=== PATIENT | female | born 2000 | race Caucasian/White ===

== ENCOUNTER 2023-08-25 06:11 | Day surgery (SDC) | payer OTHER ==
[~2023-08-25 06:11] MED LIST: HUMALOG100 UNIT/2 SQ; LIPITOR20 MG PO; OMEPRAZOLE MAGN20 MG PO; SYNTHROID75 MCG PO
[2023-08-25] MEDS ORDERED: CEFAZOLIN SODIUM 1,000 MG VIAL ONE (11:54)
[2023-08-25] MEDS ORDERED: CEFAZOLIN SODIUM 1,000 MG VIAL IV ONE (12:30)
[2023-08-25] MEDS ORDERED: SUGAMMADEX SODIUM 200 MG/2 ML VIAL IV ONE (13:10)
== END 2023-08-25 16:15 | disposition home or self-care (01) ==
LOC: EDBD → CIR.AMB 06:11
PROVIDERS: ATTEND Surgery
DX: K80.10 Calculus of gallbladder with chronic cholecystitis without obstruction (principal)